=== PATIENT | female | born 1985 | race Caucasian/White ===

== ENCOUNTER 2016-07-09 10:23 | Emergency (ER) ==
[2016-07-09 10:29] VITALS: BMI 25.7
[2016-07-09] MEDS ORDERED: PROTONIX IV IVP STA (11:08)
[2016-07-09] MEDS ORDERED: SODIUM CHLORIDE 1,000 ML IV STA (11:12)
[2016-07-09] MEDS ORDERED: DILAUDID 1 MG/ML SYRINGE IVP STA (11:12)
--- NOTE | 2016-07-09 11:12 | ED.PDOC ---
General ED Provider: Dr. REENA KELLY Chief Complaint: Nausea/Vomiting Stated Complaint: Patient is a 30 year old female who comes to the ER with severe right upper quadrant abdominal pain that radiates to right side of back. The pain is intermtient currently very severe with associated Nausea and vomiting x 1 through the night Time Seen by Physician: 11:11 Mode of Arrival: Walk-In Information Source: Patient Nursing and Triage Documentation Reviewed and Agree: Yes Review of Systems - Review Of Systems Constitutional: Reports: No symptoms Eyes: Reports: No symptoms Ears, Nose, Mouth, Throat: Reports: No symptoms Respiratory: Reports: No symptoms Cardiac: Reports: No symptoms GI: Reports: Abdominal pain, Nausea, Vomiting : Reports: No symptoms Musculoskeletal: Reports: No symptoms Skin: Reports: No symptoms Neurological: Reports: No symptoms Endocrine: Reports: No symptoms Hematologic/Lymphatic: Reports: No symptoms All Other Systems: Reviewed and Negative Past Medical History - Past Medical History Previously Healthy: Yes Endocrine: Reports: None Cardiovascular: Reports: None Respiratory: Reports: None Hematological: Reports: None Gastrointestinal: Reports: None Genitourinary: Reports: None Neuro/Psych: Reports: None Musculoskeletal: Reports: None Cancer: Reports: None Last Menstrual Period: 06/29/16 - Surgical History General Surgical History: Reports: Tubal ligation, Orthopedic (L LEG SURGERY 10YRS AGO) - Family History Family History: Reports: Unknown - Social History Smoking Status: Current every day smoker Hx Substance Use: No Alcohol Screening: None - Immunizations Tetanus Shot up to Date: Yes Physical Exam - Physical Exam Appearance: Ill-appearing Ill-appearing: Moderate Pain Distress: Severe Neck: Supple Respiratory: Airway patent, Breath sounds clear, Breath sounds equal, Respirations nonlabored Cardiovascular: RRR, Pulses normal, No rub, No murmur GI/: Soft, Tender, Bowel sounds hyperactive Musculoskeletal: Normal strength, ROM intact, No edema, No calf tenderness Skin: Warm, Dry, Normal color Neurological: Sensation intact, Motor intact, Alert, Oriented Interpretation - Radiology Interpretation Radiology Interpretation By: Radiologist Radiology Results: Positive Exam Interpreted: CT Scan (cholecystitis or choledocolitiasis ) Physician Notification - Case Discussed Physician Notified: Royer Time of Notification: 13:40 (ok to Transfer. ) Critical Care Note - Critical Care Note Total Time (mins): 10 Course - Course Hematology/Chemistry: 07/09/16 11:15 07/09/16 11:15 Orders, Labs, Meds: Lab Review 07/09/16 07/09/16 10:45 11:15 WBC 14.55 H RBC 4.84 Hgb 14.4 Hct 42.2 MCV 87.2 MCH 29.8 MCHC 34.1 RDW Coeff of Mil 13.1 Plt Count 239 Immature Gran % (Auto) 0.4 Neut % (Auto) 75.2 Lymph % (Auto) 15.3 [place] % (Auto) 6.7 Eos % (Auto) 2.1 Baso % (Auto) 0.3 Immature Gran # (Auto) 0.1 Neut # 10.9 H Lymph # 2.2 [place] # 1.0 Eos # 0.3 Baso # 0.1 Sodium 141 Potassium 3.6 Chloride 105 Carbon Dioxide 28 Anion Gap 11.6 BUN 8 Creatinine 0.69 Estimated GFR (MDRD) 101.00 BUN/Creatinine Ratio 11.59 Glucose 102 Calcium 9.3 Total Bilirubin 0.37 AST 31 ALT 19 Alkaline Phosphatase 97 Total Protein 7.1 Albumin 4.1 Globulin 3.0 Albumin/Globulin Ratio 1.37 Amylase 25 Lipase 18 Urine Color Yellow Urine Clarity Cloudy Urine pH 6.5 Ur Specific [place] 1.025 Urine Protein Negative Urine Glucose (UA) Negative Urine Ketones Negative Urine Blood Negative Urine Nitrite Negative Urine Bilirubin Negative Urine Urobilinogen 0.2 Ur Leukocyte Esterase Negative Urine Test Negative Orders Category Date Time Status ED IV/MEDIPORT/POWERPORT .ONCE EMERGENCY 07/09/16 11:08 Active AMYLASE Stat LAB 07/09/16 11:15 Completed CBC W/ AUTO DIFF Stat LAB 07/09/16 11:15 Completed COMPREHENSIVE METABOLIC PANEL Stat LAB 07/09/16 11:15 Completed LIPASE Stat LAB 07/09/16 11:15 Completed UA [URINALYSIS C & S IF INDICATED] Stat LAB 07/09/16 10:45 Completed URINE Stat LAB 07/09/16 10:45 Completed 0.9 % Sodium Chloride [Saline Flush] MEDS 07/09/16 11:08 Discontinued 1 syr IVF PRN PRN Hydromorphone HCl [Dilaudid 1 mg/ml Syringe] MEDS 07/09/16 11:12 Discontinued 1 mg IVP ONCE STA Ketorolac Tromethamine [Toradol] MEDS 07/09/16 12:37 Discontinued 30 mg IVP ONCE STA Pantoprazole Sodium [Protonix IV] MEDS 07/09/16 11:08 Discontinued 40 mg IVP ONCE STA Sodium Chloride 0.9% [Sodium Chloride] 1,000 ml MEDS 07/09/16 11:[address] ABD/PEL WO RENAL STONE PROT Stat RADS 07/09/16 11:44 Completed Medications Discontinued Medications Generic Name Dose Route Start Last Admin Trade Name Freq PRN Reason Stop Dose Admin Hydromorphone HCl 1 mg 07/09/16 11:12 07/09/16 11:21 Dilaudid 1 Mg/Ml Syringe IVP 07/09/16 11:13 1 mg ONCE STA Administration Sodium Chloride 1,000 mls @ 1,000 mls/hr 07/09/16 11:12 07/09/16 11:25 Sodium Chloride IV 07/09/16 12:11 1,000 mls/hr BOLUS STA Administration Ketorolac Tromethamine 30 mg 07/09/16 12:37 07/09/16 12:44 Toradol IVP 07/09/16 12:38 30 mg ONCE STA Administration Pantoprazole Sodium 40 mg 07/09/16 11:08 07/09/16 11:17 Protonix Iv IVP 07/09/16 11:09 40 mg ONCE STA Administration Sodium Chloride 1 syr 07/09/16 11:08 07/09/16 12:45 Saline Flush IVF 1 syr PRN PRN Administration To flush IV Vital Signs: Temp Pulse Resp BP Pulse Ox 07/09/16 13:29 96.5 F L 61 20 104/55 L 100 07/09/16 10:24 98.2 F 71 20 142/94 H 98 Departure - Departure Time of Disposition: 12:45 Disposition: TSF SHORT-TRM HOSP Discharge Problem: Cholecystitis Instructions: Cholecystitis (ED) Condition: Fair Pt referred to PMD for follow-up: Yes Allergies/Adverse Reactions: Allergies No Known Drug Allergies Adverse Reaction (Verified 07/09/16 10:33) Home Medications: Ambulatory Orders 1 [No Reported Medications] 07/09/16 Disposition Discussed With: Patient, Family
[2016-07-09 11:17] LABS: ADD URINE MICROSCOPIC NO; BILIRUBIN,URINE Negative (NEGATIVE); KETONES,URINE Negative (NEGATIVE); LEUKOCYTE ESTERASE ,URINE Negative (NEGATIVE); NITRITE,URINE Negative (NEGATIVE); PH,URINE 6.5 (5-9); PROTEIN,URINE Negative (NEGATIVE); URINE, BLOOD Negative (NEGATIVE)
[2016-07-09 11:18] LABS: URINE PREGNANCY INTERNAL QC INTERNAL QC VALID
[2016-07-09 11:24] LABS: BASOPHILS # (AUTO) 0.1 K/uL (0-0.2); BASOPHILS % (AUTO) 0.3 % (0.0-3.0); EOSINOPHILS # (AUTO) 0.3 K/ul (0.0-0.7); EOSINOPHILS % (AUTO) 2.1 % (0.0-7.0); HEMATOCRIT 42.2 % (37.0-47.0); HEMOGLOBIN 14.4 g/dl (12.0-16.0); IMMATURE GRANULOCYTE % (AUTO) 0.4 % (0.0-5.0); LYMPHOCYTES # (AUTO) 2.2 K/uL (0.60-3.4); LYMPHOCYTES % (AUTO) 15.3 (10.0-50.0); MEAN CORPUSCULAR HEMOGLOBIN 29.8 pg (27.0-31.0); MEAN CORPUSCULAR HGB CONC 34.1 (31.8-35.4); MEAN CORPUSCULAR VOLUME 87.2 fl (81.0-99.0); MONOCYTES % (AUTO) 6.7 (0-10); NEUTROPHILS # (AUTO) 10.9 K/ul (2.0-6.9); NEUTROPHILS % (AUTO) 75.2; PLATELET COUNT 239 10^3/uL (140-440); RED BLOOD COUNT 4.84 10^6/ul (4.20-5.40); WHITE BLOOD COUNT 14.55 K/ul (4.6-10.2)
[2016-07-09 11:44] LABS: ALBUMIN 4.1 g/dL (3.4-5.0); ALBUMIN/GLOBULIN RATIO 1.37; ANION GAP 11.6; BILIRUBIN,TOTAL 0.37 mg/dL (0.00-1.20); BUN/CREATININE RATIO 11.59; CALCIUM 9.3 mg/dL (8.2-10.2); CREATININE 0.69 mg/dL (0.60-1.30); POTASSIUM 3.6 mmol/L (3.5-5.10); TOTAL PROTEIN 7.1 g/dL (6.4-8.2)
[2016-07-09] MEDS ORDERED: TORADOL IVP STA (12:37)
--- NOTE | 2016-07-09 12:40 | CT ---
Examination: Noncontrast CT imaging of the abdomen and pelvis with axial, sagittal, and coronal rec onstruction. Comparison: None available. Reason for study: Right upper quadrant abdominal pain. FINDINGS: Within the partially imaged lung bases. There are no pneumothoraces, pleural effusions, or focal consolidations. The heart is not enlarged. Imaging of the abdominal organs is limited by the lack of intravenous contrast. The liver, spleen, adrenal glands, and kidneys are grossly unremarkable. There is no focal bowel di latation or transition point. The appendix is unremarkable. No pelvic free fluid. There is fluid within the endometrial canal likely physiologic. No significant degenerative disease in the thoraci c and lumbar spine. No osteoblastic or osteolytic lesions. The gallbladder appears hydropic without radiopaque stones. The pancreas appears grossly unremarkab le without ductal dilatation. Impression: 1. Hydropic gallbladder without radiopaque stones. Imaging findings are consistent with calculus o r acalculus cholecystitis or choledocholithiasis. 2. If clinical suspicion is high ultrasonographic evaluation may be performed.
[2016-07-09 13:32] VITALS: BP 104/55; TEMP 96.5
== END 2016-07-09 14:32 | disposition short-term general hospital (02) ==
LOC: ED 10:23
DX: K81.9 Cholecystitis, unspecified (principal); F17.210 Nicotine dependence, cigarettes, uncomplicated
CPT/HCPCS: 36415; 74176; 80053; 81001; 81025; 82150; 83690; 85025; 96361; 96374; 96375; 99283

== ENCOUNTER 2016-07-09 14:27 | Outpatient (CLI) ==
[2016-07-09 10:29] VITALS: BMI 25.7
== END 2016-07-09 14:28 ==
LOC: AMBL 14:27
PROVIDERS: ATTEND Internal Medicine Geriatric Medicine
DX: K80.80 Other cholelithiasis without obstruction (principal); K80.20 Calculus of gallbladder without cholecystitis without obstruction; R10.9 Unspecified abdominal pain

== ENCOUNTER 2018-11-24 07:12 | Emergency (ER) ==
[2018-11-24 07:24] VITALS: BP 121/79; TEMP 98.7; BMI 30.9
[2018-11-24] MEDS: TORADOL IM STA (07:46)
--- NOTE | 2018-11-24 08:15 | ED.PDOC ---
General ED Provider: Dr. JAMARCUS LUZ MD Chief Complaint: Knee Pain/Injury Stated Complaint: jumped off a bridge, c/o left kne pain Time Seen by Physician: 07:40 Mode of Arrival: Walk-In Information Source: Patient Exam Limitations: No limitations Primary Care Provider: EFREN MINER Nursing and Triage Documentation Reviewed and Agree: Yes Does patient meet sepsis criteria?: No If yes, has appropriate treatment been initiated?: Yes System Inflammatory Response Syndrome: Not Applicable Sepsis Protocol: For patient's 13 years and over: Temp is 96.8 and below OR 101 and greater Pulse >90 BPM Resp >20/minute Acutely Altered Mental Status Are patient's symptoms suggestive of a new infection, such as: -Pneumonia -Skin, Soft Tissue -Endocarditis -UTI -Bone, Joint Infection -Implantable Device -Acute Abdominal Infection -Wound Infection -Meningitis -Blood Stream Catheter Infection -Unknown Review of Systems - Review Of Systems Constitutional: Reports: No symptoms Eyes: Reports: No symptoms Ears, Nose, Mouth, Throat: Reports: No symptoms Respiratory: Reports: No symptoms Cardiac: Reports: No symptoms GI: Reports: No symptoms : Reports: No symptoms Musculoskeletal: Reports: No symptoms Skin: Reports: No symptoms Neurological: Reports: No symptoms Endocrine: Reports: No symptoms Hematologic/Lymphatic: Reports: No symptoms All Other Systems: Reviewed and Negative Past Medical History - Past Medical History Previously Healthy: Yes Endocrine: Reports: None Cardiovascular: Reports: None Respiratory: Reports: None Hematological: Reports: None Gastrointestinal: Reports: None Genitourinary: Reports: None Neuro/Psych: Reports: None Musculoskeletal: Reports: None Cancer: Reports: None Last Menstrual Period: 3 weeks ago - Surgical History General Surgical History: Reports: Tubal ligation, Orthopedic (L LEG SURGERY 10YRS AGO) - Family History Family History: Reports: Unknown - Social History Smoking Status: Current every day smoker Hx Substance Use: No Alcohol Screening: None Physical Exam - Physical Exam Appearance: Well-appearing, No pain distress, Well-nourished Pain Distress: Moderate Eyes: RONNELL, EOMI, Conjunctiva clear ENT: Ears normal, Nose normal, Oropharynx normal Respiratory: Airway patent, Breath sounds clear, Breath sounds equal, Respirations nonlabored Cardiovascular: RRR, Pulses normal, No rub, No murmur GI/: Soft, Nontender, No masses, Bowel sounds normal, No Organomegaly Musculoskeletal: Limited ROM, Limited strength Skin: Warm, Dry, Normal color Neurological: Sensation intact, Motor intact, Reflexes intact, Cranial nerves intact, Alert, Oriented Psychiatric: Affect appropriate, Mood appropriate Interpretation - Radiology Interpretation Radiology Results: Negative Xray Comments: WNL Critical Care Note - Critical Care Note Total Time (mins): 0 Course - Course Orders, Labs, Meds: Orders Category Date Time Status Ketorolac Tromethamine [Toradol] MEDS 11/24/18 07:35 Discontinued 60 mg IM ONCE STA FEMUR, LEFT 2 VIEWS Stat RADS 11/24/18 07:37 Taken KNEE, LEFT 4 VIEWS Stat RADS 11/24/18 07:36 Taken Medications Discontinued Medications Generic Name Dose Route Start Last Admin Trade Name Freq PRN Reason Stop Dose Admin Ketorolac Tromethamine 60 mg 11/24/18 07:35 11/24/18 07:46 Toradol IM 11/24/18 07:36 60 mg ONCE STA Administration Vital Signs: Temp Pulse Resp BP Pulse Ox 11/24/18 07:13 98.7 F 115 H 20 121/79 99 Departure - Departure Time of Disposition: 08:15 Disposition: HOME SELF-CARE Discharge Problem: Knee LCL sprain Qualifiers: Encounter type: initial encounter Laterality: left Qualified Code(s): S83.422A - Sprain of lateral collateral ligament of left knee, initial encounter Instructions: Knee Sprain (ED) Condition: Good Pt referred to PMD for follow-up: Yes IPMP verified?: No Allergies/Adverse Reactions: Allergies No Known Drug Allergies Adverse Reaction (Verified 11/24/18 07:18) Home Medications: Ambulatory Orders 1 [No Reported Medications] 07/09/16 Transfer Form Completed: No Disposition Discussed With: Patient
--- NOTE | 2018-11-24 09:04 | DI ---
Exam: Two views of the left finger. Comparison: None available. Reason for exam: Trauma. FINDINGS: No acute fracture or malalignment. The cortices are intact. No unexplained calcific soft tissue density or radiopaque retained foreign body. Impression: No acute fracture or malalignment in the left femur.
--- NOTE | 2018-11-24 09:05 | DI ---
Exam: Four views of the left knee. Comparison: None available. Reason for exam: Jumped off of a bridge FINDINGS: No acute fracture or malalignment. The cortices appear intact. The joint spaces are well maintained. No unexplained calcific soft tissue density or radiopaque retained foreign body. Impression: No acute fracture or dislocation in the left knee
== END 2018-11-24 09:06 | disposition home or self-care (01) ==
LOC: ED 07:12
DX: S83.422A Sprain of lateral collateral ligament of left knee, initial encounter (principal); W19.XXXA Unspecified fall, initial encounter; F17.210 Nicotine dependence, cigarettes, uncomplicated
CPT/HCPCS: 96372; 99283